=== PATIENT | female | born 1990 | race African-American/Black ===

== ENCOUNTER 2019-10-21 02:25 | Emergency (ER) | payer SELFPAY ==
[~2019-10-21] VITALS: Ht 165.1 cm; Wt 106.0 kg
[2019-10-21 06:35] LABS: HEMATOCRIT. 38.8 % (36.0-48.0); HEMOGLOBIN. 13.1 g/dL (12.0-16.0); MEAN CORPUSCULAR HEMOGLOBIN 28.7 pg (28.0-32.0); MEAN CORPUSCULAR VOLUME 84.9 fL (81.0-99.0); MEAN PLATELET VOLUME 8.8 fl (7.4-10.4); PLATELET 215 x1000/uL (130-400); RED BLOOD CELL COUNT 4.57 mill/uL (4.2-5.4); RED CELL DISTRIBUTION WIDTH 13.8 % (11.6-14.6)
[2019-10-21 06:47] LABS: CHLORIDE 105 mEq/L (98-107)
[2019-10-21 07:10] LABS: B-HCG QUANTITATIVE 26340 mIU/mL (<3)
[2019-10-21 07:21] LABS: PLATELET ESTIMATE NORMAL
[2019-10-21 08:02] VITALS: BP 112/66
== END 2019-10-21 08:04 | disposition home or self-care (01) ==
LOC: ER 02:56
DX: O20.0 Threatened abortion (principal); Z3A.00 Weeks of gestation of pregnancy not specified
CPT/HCPCS: 36415; 76801; 81025; 84702; 99284